=== PATIENT | male | born 1955 | race African-American/Black ===

== ENCOUNTER 2021-06-19 14:42 | Outpatient (CLI) | payer MEDICARE | END 2021-06-19 14:43 | disposition home or self-care (01) | LOC: LAB 14:42 | PROVIDERS: ATTEND Internal Medicine Nephrology | DX: E11.22 Type 2 diabetes mellitus with diabetic chronic kidney disease (principal); I12.9 Hypertensive chronic kidney disease with stage 1 through stage 4 chronic kidney disease, or unspecified chronic kidney disease; R80.0 Isolated proteinuria; N20.0 Calculus of kidney; N18.30 Chronic kidney disease, stage 3 unspecified; R94.4 Abnormal results of kidney function studies; E87.6 Hypokalemia | CPT/HCPCS: 36415; 82088; 84132 ==